=== PATIENT | female | born 1975 | race Caucasian/White ===

== ENCOUNTER → 2019-03-21 14:30 | Outpatient (CLI) | payer BC, OTHER | END | disposition home or self-care (01) | LOC: D.MAMMO 02-11 15:30 | PROVIDERS: ATTEND Nurse Practitioner Family | DX: Z12.31 Encounter for screening mammogram for malignant neoplasm of breast (principal) ==

== ENCOUNTER 2019-04-22 09:00 | Outpatient (CLI) | payer BC, OTHER | END 2019-04-22 09:30 | disposition home or self-care (01) | LOC: D.MAMMO 09:00 | PROVIDERS: ATTEND Nurse Practitioner Family | DX: R92.8 Other abnormal and inconclusive findings on diagnostic imaging of breast (principal) ==